=== PATIENT | male | born 1990 | race Caucasian/White ===

== ENCOUNTER 2024-06-03 08:56 | Emergency (ER) | payer MEDICAID ==
[~2024-06-03] VITALS: Ht 167.6 cm; Wt 81.8 kg
[2024-06-03 09:01] VITALS: TEMP 97.9
[2024-06-03] MEDS: ACETAMINOPHEN 325 MG TABLET PO ONE (11:39)
[2024-06-03] MEDS: DIAZEPAM 5 MG TABLET PO ONE (11:40)
[2024-06-03] MEDS: LIDOCAINE 5% TRANSDERMAL PATCH TD ONE (11:42)
[2024-06-03] MEDS: KETOROLAC TROMETHAMINE 30 MG/ML VIAL IM ONE (11:42)
[2024-06-03 13:07] VITALS: BP 137/78; PULSE 77; RESP 18; O2SAT 99
== END 2024-06-03 13:07 | disposition home or self-care (01) ==
LOC: EMS 08:56
DX: M54.50 Low back pain, unspecified (principal); V89.2XXA Person injured in unspecified motor-vehicle accident, traffic, initial encounter; Y93.89 Activity, other specified; Y92.89 Other specified places as the place of occurrence of the external cause; Y99.8 Other external cause status
CPT/HCPCS: 99284; 96372; J1885